=== PATIENT | female | born 1965 | race Caucasian/White ===

== ENCOUNTER → 2017-10-19 | Outpatient (CLI) | payer OTHER ==
[2017-10-21 16:09] LABS: HPV Genotype 16 Not Detected (NOTDET); HPV Genotype 18 Not Detected (NOTDET)
[2017-10-27 09:41] LABS: HPV High Risk Other Not Detected (NOTDET)
== END | disposition home or self-care (01) ==
LOC: OLS 16:41
PROVIDERS: Obstetrics & Gynecology Gynecology
DX: Z12.4 Encounter for screening for malignant neoplasm of cervix (principal)
CPT/HCPCS: 87624; G0123

== ENCOUNTER → 2018-11-16 | Outpatient (CLI) | payer OTHER ==
[2018-11-18 15:07] LABS: HPV 16 Negative (Negative); HPV 18 Negative (Negative); HPV OTHER HR TYPES Negative (Negative)
== END | disposition home or self-care (01) ==
LOC: LAB 16:00 → LAB SHORT 16:00
PROVIDERS: Obstetrics & Gynecology Gynecology
DX: Z12.4 Encounter for screening for malignant neoplasm of cervix (principal)
CPT/HCPCS: 87624; G0123

== ENCOUNTER → 2019-08-10 | Outpatient (CLI) | payer OTHER | END | disposition home or self-care (01) | LOC: LAB EV 17:56 → LAB SHORT 17:56 | DX: J02.9 Acute pharyngitis, unspecified (principal) | CPT/HCPCS: 87081 ==

== ENCOUNTER 2022-01-08 12:10 | Day surgery (SDC) | payer OTHER ==
[~2022-01-08] VITALS: Ht 160 cm; Wt 63.3 kg
== END 2022-01-08 13:30 | disposition home or self-care (01) ==
LOC: ORSCSDS 12:10
PROVIDERS: Ophthalmology
PROC: 08RK3JZ Replacement of Left Lens with Synthetic Substitute, Percutaneous Approach (ICD-10-PCS; principal; 2022-01-08 13:30)
DX: H25.12 Age-related nuclear cataract, left eye (principal); H52.4 Presbyopia
CPT/HCPCS: J2001; J2250; J3010; J3301; J7040; V2632

== ENCOUNTER 2022-01-29 12:22 | Day surgery (SDC) | payer OTHER ==
[~2022-01-29] VITALS: Ht 160 cm; Wt 63.9 kg
== END 2022-01-29 13:27 | disposition home or self-care (01) ==
LOC: ORSCSDS 12:22
PROVIDERS: Ophthalmology
PROC: 08RJ3JZ Replacement of Right Lens with Synthetic Substitute, Percutaneous Approach (ICD-10-PCS; principal; 2022-01-29 13:30)
DX: H25.11 Age-related nuclear cataract, right eye (principal); H52.4 Presbyopia
CPT/HCPCS: J2001; J2250; J3010; J3301; J7040; V2632